=== PATIENT | male | born 1980 ===

== ENCOUNTER 2018-06-13 10:14 | Emergency (ER) | payer MEDICAID ==
[~2018-06-13] VITALS: Ht 177.8 cm; Wt 100.0 kg
[2018-06-13 11:48] VITALS: BP 139/61
== END 2018-06-13 11:55 | disposition home or self-care (01) ==
LOC: ED 11:40
DX: F10.220 Alcohol dependence with intoxication, uncomplicated (principal); G89.11 Acute pain due to trauma; M54.5 Low back pain; M25.531 Pain in right wrist; W01.10XA Fall on same level from slipping, tripping and stumbling with subsequent striking against unspecified object, initial encounter; Y93.89 Activity, other specified; Y92.480 Sidewalk as the place of occurrence of the external cause; Y99.8 Other external cause status
CPT/HCPCS: 99283